=== PATIENT | male | born 1950 | race Caucasian/White ===

== ENCOUNTER 2021-12-04 18:01 | Emergency (ER) | payer OTHER ==
[~2021-12-04] VITALS: Ht 172.7 cm; Wt 90.7 kg
[2021-12-04 18:26] VITALS: BP_SYST 158
--- NOTE | 2021-12-04 18:31 | NUR ---
Triaged pt and placed in TENT. Pt c/o feeling fatigue, n/v, and lack of appetite since this morning. Pt is A&Ox4. Skin intact and warm. VSS. Not in any pain. LBM this morning. NKA. Has hx of HTN and DM. Family member at bedside. Bed in lowest position.
--- NOTE | 2021-12-04 18:32 | NUR ---
EKG performed at by ramone Rudd. Physician given copy of EKG for review.
--- NOTE | 2021-12-04 18:35 | NUR ---
ceramics technician at bedside.
--- NOTE | 2021-12-04 18:36 | NUR ---
Accucheck done and results were 213. Dr. Lucio made aware.
--- NOTE | 2021-12-04 18:37 | NUR ---
Covid swab done and sent to lab.
[2021-12-04 18:54] LABS: BASOPHILS % (AUTO) 0.2 % (0.0-2.0); EOSINOPHILS % (AUTO) 0.1 % (0.0-4.0); HEMATOCRIT 45.5 % (36-54); HEMOGLOBIN 15.5 g/dL (14.0-18.0); LYMPHOCYTES # (AUTO) 1.3 K/uL (1.0-5.5); LYMPHOCYTES % (AUTO) 17.9 % (20.5-51.5); MEAN CORPUSCULAR HEMOGLOBIN 30 pg (27-31); MEAN CORPUSCULAR HGB CONC 34 % (32-36); MEAN CORPUSCULAR VOLUME 88 fL (79.0-98.0); MONOCYTES # (AUTO) 0.2 K/uL (0.0-1.0); MONOCYTES % (AUTO) 3.2 % (1.7-9.3); NEUTROPHILS # (AUTO) 5.9 K/uL (1.8-7.7); NEUTROPHILS % (AUTO) 78.6 % (40.0-70.0); PLATELET COUNT (AUTO) 154 K/uL (130-430); RED BLOOD CELL COUNT(AUTO) 5.19 MIL/uL (4.2-6.2); RED CELL DISTRIBUTION WIDTH 13.5 % (9.0-15.0); WHITE BLOOD COUNT (AUTO) 7.5 K/uL (4.8-10.8)
[2021-12-04 19:33] LABS: CALCIUM 8.9 mg/dL (8.4-11.0); CREATININE 0.8 mg/dL (0.55-1.30); POTASSIUM 3.9 mmol/L (3.5-5.1)
[2021-12-04 19:39] LABS: ALBUMIN 3.9 g/dL (3.4-4.8); TOTAL BILIRUBIN 0.7 mg/dL (0.0-1.0)
[2021-12-04] MEDS ORDERED: NACL 0.9% 1,000 ML IV ONE (19:45)
[2021-12-04] MEDS ORDERED: DIPHENHYDRAMINE INJ 50 MG/ML VIAL IVP ONE (19:45)
[2021-12-04] MEDS ORDERED: PROCHLORPERAZINE EDISYLATE 10 MG/2 ML VIAL IVP ONE (19:45)
--- NOTE | 2021-12-04 21:24 | NUR ---
Patient to ER bed H1 to gown for evaluation. Side rails up. Report given to Jr STILES
--- NOTE | 2021-12-04 21:38 | NUR ---
Pt to have ear irrigated at this time per MD's request. Pt states he has had N/V since this am. Pt denies diarrhea, fevers, body aches, chills. Pt denies abdominal pain and denies chest pain. Pt on room air. Spouse at bedside.
[2021-12-04] MEDS ORDERED: PROCHLORPERAZINE EDISYLATE 10 MG/2 ML VIAL ONE (22:07)
[2021-12-04] MEDS ORDERED: DIPHENHYDRAMINE INJ 50 MG/ML VIAL ONE (22:07)
[2021-12-04] MEDS ORDERED: CARB15DR93 EACH EAR (22:21)
[2021-12-04] MEDS ORDERED: MECL-225 PO (22:21)
--- NOTE | 2021-12-04 22:45 | NUR ---
Pt drank apple juice at this time. No N/V. Pt denies nausea.
--- NOTE | 2021-12-04 23:36 | NUR ---
Patient given written and verbal discharge instructions and verbalizes understanding. ER MD discussed with patient the results and treatment provided. Patient in stable condition. ID arm band removed. IV catheter removed intact and dressing applied, no active bleeding. Rx of Meclizine and Ear drops given. Patient educated on pain management and to follow up with PMD. Pain Scale 0/10. Opportunity for questions provided and answered. Medication side effect fact sheet provided.
[2021-12-04 23:38] VITALS: BP_SYST 155
== END 2021-12-04 23:38 | disposition home or self-care (01) ==
LOC: SED 18:01
DX: H61.22 Impacted cerumen, left ear (principal); R42 Dizziness and giddiness; R53.1 Weakness; R11.10 Vomiting, unspecified; I10 Essential (primary) hypertension; Z79.899 Other long term (current) drug therapy; Z20.822 Contact with and (suspected) exposure to COVID-19
CPT/HCPCS: 36415; 69209; 80053; 83690; 85025; 87426; 93005; 96361; 96374; 96375; 99284; J0780; J1200; J7030